=== PATIENT | female | born 1950 | race Caucasian/White ===

== ENCOUNTER 2021-10-01 18:39 | Emergency (ER) | payer BC, MEDICARE ==
[2021-10-01 19:29] VITALS: BP 130/86; PULSE 95
== END 2021-10-01 21:31 | disposition home or self-care (01) ==
LOC: JP.ED 18:39
DX: M77.51 Other enthesopathy of right foot and ankle (principal); J45.909 Unspecified asthma, uncomplicated; I10 Essential (primary) hypertension; Z88.5 Allergy status to narcotic agent; Z79.899 Other long term (current) drug therapy; Z79.82 Long term (current) use of aspirin; Z90.710 Acquired absence of both cervix and uterus
CPT/HCPCS: 36415; 73630-26-RT; 73630-RT; 80048; 85025; 86140; 86618; 99283

== ENCOUNTER 2022-05-01 18:08 | Emergency (ER) | payer MEDICARE ==
[2022-05-01] MEDS ORDERED: Ondansetron 4 MG/2 ML SDV IVPUSH ONE (18:50)
[2022-05-01] MEDS ORDERED: Sodium Chloride 0.9% 1,000 ML IV SCH (19:00)
[2022-05-01] MEDS ORDERED: Iopamidol 755 Mg/ML 100 ML Bottle IV SCH (19:15)
[2022-05-01] MEDS ORDERED: Sodium Chloride 0.9% 100 ML IV SCH (19:15)
[2022-05-01] MEDS ORDERED: LORazepam 2 MG/ML SDV IVPUSH ONE (19:23)
[2022-05-01] MEDS ORDERED: hydrOXYzine HCL 100 MG/2 ML SDV IM ONE (20:17)
[2022-05-01 23:10] VITALS: BP 125/89; PULSE 77
== END 2022-05-01 23:35 | disposition home or self-care (01) ==
LOC: JP.ED 18:08
DX: R11.2 Nausea with vomiting, unspecified (principal); I10 Essential (primary) hypertension; J45.909 Unspecified asthma, uncomplicated; F17.210 Nicotine dependence, cigarettes, uncomplicated; Z88.5 Allergy status to narcotic agent; Z79.82 Long term (current) use of aspirin; Z20.822 Contact with and (suspected) exposure to COVID-19
CPT/HCPCS: 36415; 70450; 70496; 70498; 80048; 84484; 85025; 93005; 96361; 96372; 96374; 96375; 99284; J2060; J2405; J3410; J7030; U0002

== ENCOUNTER 2022-09-06 07:19 | Day surgery (SDC) | payer MEDICARE ==
[~2022-09-06 07:19] MED LIST: fentaNYL 250 MCG/5 ML SDV ONE
[2022-09-06] MEDS ORDERED: Succinylcholine 200 MG/10 ML MDV ONE (07:20)
[2022-09-06] MEDS ORDERED: Propofol 200 MG/20 ML SDV ONE ×2 (07:20→09:42)
[2022-09-06] MEDS ORDERED: Dexamethasone 4 MG/ML SDV ONE (07:20)
[2022-09-06] MEDS ORDERED: Ondansetron 4 MG/2 ML SDV ONE (07:20)
[2022-09-06] MEDS ORDERED: Glycopyrrolate 0.2 MG/ML 5 ML MDV ONE (07:20)
[2022-09-06] MEDS ORDERED: Neostigmine Methylsulfate 1 MG/ML 5 ML Syringe ONE (07:20)
[2022-09-06] MEDS ORDERED: Rocuronium 50 MG/5 ML Vial ONE (07:20)
[2022-09-06] MEDS ORDERED: Scopolamine 1.5 MG Transdermal Patch TOP ONE (07:46)
[2022-09-06] MEDS ORDERED: Albuterol/Ipratropium 3.0-0.5 MG/3 ML Neb Soln NEB ONE (07:48)
[2022-09-06] MEDS ORDERED: Bupivacaine 0.5%/EPINEPHrine 1:200,000 50 ML MDV ONE (07:49)
[2022-09-06] MEDS ORDERED: Lactated Ringers 1,000 ML IV SCH (08:00)
[2022-09-06] MEDS ORDERED: Nozin Nasal Sanitizer NASBOTH ONE (08:00)
[2022-09-06 08:07] LABS: HEMATOCRIT 40.2 % (34.3-46.0); HEMOGLOBIN 13.7 g/dL (11.2-15.5); MEAN CORPUSCULAR HEMOGLOBIN 35.2 pg (31.6-35.5); MEAN CORPUSCULAR HGB CONC 34.1 g/dL (31.6-35.5); MEAN CORPUSCULAR VOLUME 103.3 fL (81.4-99.0); RED BLOOD CELL COUNT 3.89 M/uL (3.77-5.24); WHITE BLOOD CELL COUNT,WBC 7.8 K/uL (3.2-11.0)
[2022-09-06] MEDS ORDERED: ceFAZolin 1 GM in Premix Bag 1 BAG IV ONE (08:15)
[2022-09-06 08:29] LABS: ALANINE AMINOTRANSFERASE,ALT 43 U/L (12-78); ALBUMIN 3.8 g/dL (3.4-5.0); ALKALINE PHOSPHATASE 52 U/L (46-116); ANION GAP 6.4 mmol/L (5.0-14.0); ASPARTATE AMNIOTRANSFERASE,AST 30 U/L (15-37); BILIRUBIN TOTAL 0.5 mg/dL (0.2-1.0); BLOOD UREA NITROGEN,BUN 19 mg/dL (7-18); CALCIUM 9.1 mg/dL (8.5-10.1); CARBON DIOXIDE,CO2 30 mmol/L (21-32); CHLORIDE,CL 105 mmol/L (100-108); CREATININE 0.9 mg/dL (0.6-1.0); EST CRCL DRUG DOSING (CG) 44.52 mL/min; ESTIMATED GFR 69 mL/min (>60); GLUCOSE RANDOM 100 mg/dL (74-106); PROTEIN TOTAL,TP 7.5 g/dL (6.4-8.2); SODIUM,NA 141 mmol/L (140-148)
[2022-09-06] MEDS ORDERED: Midazolam 1 MG/ML 2 ML SDV ONE ×2 (09:17→09:43)
[2022-09-06 13:14] VITALS: PULSE 68
[2022-09-06 13:33] VITALS: BP 123/81
[2022-09-06] MEDS ORDERED: hydrOXYzine HCl 25 MG Tab PO ONE (14:20)
== END 2022-09-06 14:34 | disposition home or self-care (01) ==
LOC: JP.SDS 07:19
PROVIDERS: ATTEND Specialist
DX: M87.852 Other osteonecrosis, left femur (principal); I10 Essential (primary) hypertension; K21.9 Gastro-esophageal reflux disease without esophagitis; E78.5 Hyperlipidemia, unspecified; J45.909 Unspecified asthma, uncomplicated; M19.90 Unspecified osteoarthritis, unspecified site; I87.2 Venous insufficiency (chronic) (peripheral); M81.0 Age-related osteoporosis without current pathological fracture; Z88.5 Allergy status to narcotic agent
CPT/HCPCS: 27299; 36415; 76000; 80053; 85027; 93005; 93010; 94640; A9270; J0131; J0690; J2250; J2704; J3490; J7120; J0330; J1100; J2405; J2710; J3010; J7620

== ENCOUNTER 2022-09-06 19:07 | Emergency (ER) | payer MEDICARE ==
[2022-09-06 19:56] VITALS: PULSE 99
[2022-09-06] MEDS ORDERED: HYDROmorphone 1 MG/ML Syringe IM ONE (20:26)
[2022-09-06 20:47] VITALS: BP 127/76
[2022-09-06] MEDS ORDERED: fentaNYL 25 MCG/HR Transdermal Patch TRDERM SCH (21:00)
== END 2022-09-06 21:53 | disposition home or self-care (01) ==
LOC: JP.ED 19:07
DX: G89.18 Other acute postprocedural pain (principal); M25.552 Pain in left hip; I10 Essential (primary) hypertension; K21.9 Gastro-esophageal reflux disease without esophagitis; J45.909 Unspecified asthma, uncomplicated; M19.90 Unspecified osteoarthritis, unspecified site; F17.210 Nicotine dependence, cigarettes, uncomplicated; Z79.82 Long term (current) use of aspirin; Z79.899 Other long term (current) drug therapy; Z88.5 Allergy status to narcotic agent; Z88.8 Allergy status to other drugs, medicaments and biological substances
CPT/HCPCS: 96372; 99283; A9270; J1170

== ENCOUNTER 2024-03-30 12:43 | Emergency (ER) | payer MEDICARE ==
[2024-03-30 13:04] VITALS: BP 144/96; PULSE 79
[2024-03-30 14:00] LABS: INFLUENZA A NAA NEGATIVE (NEGATIVE); INFLUENZA B NAA NEGATIVE (NEGATIVE); RESPIRATORY SYNCYTIAL VIR NAA NEGATIVE (NEGATIVE)
[2024-03-30 14:04] LABS: CORONAVIRUS COVID-19 NAA POSITIVE (NEGATIVE)
== END 2024-03-30 15:05 | disposition home or self-care (01) ==
LOC: JP.ED 12:43
DX: U07.1 COVID-19 (principal); J44.1 Chronic obstructive pulmonary disease with (acute) exacerbation; I10 Essential (primary) hypertension; K21.9 Gastro-esophageal reflux disease without esophagitis; Z79.82 Long term (current) use of aspirin; Z79.899 Other long term (current) drug therapy; Z88.5 Allergy status to narcotic agent; Z88.6 Allergy status to analgesic agent
CPT/HCPCS: 0241U; 71046; 99285; 99284

== ENCOUNTER 2024-05-26 05:48 | Inpatient (IN) | payer MEDICARE ==
[2024-05-26] MEDS: Scopalamine 1mg/3day Transdermal Patch TOP ONE (06:45)
[2024-05-26] MEDS: Lactated Ringers 1,000 ML IV SCH (07:09)
[2024-05-26] MEDS ORDERED: fentaNYL 100 MCG/2 ML SDV ONE (07:25)
[2024-05-26] MEDS ORDERED: Dexamethasone 4 MG/ML SDV ONE (07:26)
[2024-05-26] MEDS ORDERED: Rocuronium 50 MG/5 ML Vial ONE (07:26)
[2024-05-26] MEDS: Albuterol/Ipratropium 3.0-0.5 MG/3 ML Neb Soln NEB ONE (07:26)
[2024-05-26] MEDS ORDERED: Propofol 200 MG/20 ML SDV ONE (07:26)
[2024-05-26] MEDS ORDERED: Succinylcholine 200 MG/10 ML MDV ONE (07:26)
[2024-05-26] MEDS ORDERED: Ondansetron 4 MG/2 ML SDV ONE (07:26)
[2024-05-26] MEDS ORDERED: Neostigmine Methylsulfate 10 MG/10 ML MDV ONE (07:26)
[2024-05-26] MEDS ORDERED: Glycopyrrolate 0.2 MG/ML 5 ML MDV ONE (07:26)
[2024-05-26] MEDS ORDERED: ceFAZolin 2 GM in Sodium Chloride 0.9% 50 ML IV ONE (07:30)
[2024-05-26] MEDS: ceFAZolin 2 GM in Premix Bag 1 BAG IV ONE (07:35)
[2024-05-26] MEDS ORDERED: diphenhydrAMINE 50 MG/ML SDV ONE (08:01)
[2024-05-26] MEDS ORDERED: Labetalol 20 MG/4 ML Syringe ONE (08:02)
[2024-05-26] MEDS ORDERED: fentaNYL 250 MCG/5 ML SDV ONE (08:14)
[2024-05-26] MEDS ORDERED: hydrALAZINE 20 MG/ML SDV ONE (08:26)
[2024-05-26] MEDS: Bupivacaine 0.25%/EPINEPHrine 1:200,000 30 ML SDV ONE (08:29)
[2024-05-26] MEDS ORDERED: Sugammadex Sodium 200 MG/2 ML VIAL IV ONE (08:34)
[2024-05-26] MEDS ORDERED: Ketorolac 30 MG/ML SDV ONE (08:34)
[2024-05-26] MEDS ORDERED: ePHEDrine 50 MG/ML SDV ONE (08:44)
[2024-05-26] MEDS ORDERED: Lactated Ringers 1,000 ML ONE (08:45)
[2024-05-26] MEDS ORDERED: Albuterol/Ipratropium 3.0-0.5 MG/3 ML Neb Soln INH PRN (09:57)
[2024-05-26] MEDS ORDERED: Albuterol 6.7 GM Inhaler INH PRN (09:57)
[2024-05-26] MEDS: Ondansetron 4 MG/2 ML SDV IVPUSH PRN (11:00)
[2024-05-26] MEDS: HYDROmorphone 0.5 MG/0.5 ML Syringe IVPUSH PRN (11:01)
[2024-05-26] MEDS: Acetaminophen 325 MG Tab PO SCH (14:30)
[2024-05-26] MEDS: Gabapentin 100 MG Cap PO SCH (14:31)
[2024-05-26] MEDS: Promethazine 12.5 MG in Sodium Chloride 0.9% 50 ML IV PRN (15:08)
[2024-05-26] MEDS: Ketorolac 15 MG/ML SDV IVPUSH PRN (15:51)
[2024-05-26] MEDS: Melatonin 3 MG Tab PO SCH (21:21)
[2024-05-26] MEDS: Famotidine 20 MG Tab PO SCH (21:22)
[2024-05-26] MEDS: SYMBICORT INH SCH (21:22)
[2024-05-27] MEDS: Losartan 50 MG Tab PO SCH (08:05)
[2024-05-27] MEDS ORDERED: Non-Formulary Medication 1 Each (Famotidine [Pepcid] 40 MG Tablet) PO SCH (09:00)
[2024-05-27] MEDS: Acetaminophen Soln 650 MG/20.3 ML UD Cup PO SCH (09:23)
[2024-05-27 11:10] VITALS: BP 117/77; PULSE 79
== END 2024-05-27 12:27 | disposition home or self-care (01) | DRG 328 ==
LOC: JP.SDSSCHI 05:48 → JP.MS 09:53
PROVIDERS: ADMIT Surgery; ATTEND Surgery
PROC: 0DV44ZZ Restriction of Esophagogastric Junction, Percutaneous Endoscopic Approach (ICD-10-PCS; 2024-05-26)
PROC: 0BQT4ZZ Repair Diaphragm, Percutaneous Endoscopic Approach (ICD-10-PCS; principal; 2024-05-26 07:30)
DX: K44.9 Diaphragmatic hernia without obstruction or gangrene (principal); K21.9 Gastro-esophageal reflux disease without esophagitis; J45.909 Unspecified asthma, uncomplicated; G43.909 Migraine, unspecified, not intractable, without status migrainosus; I10 Essential (primary) hypertension; Z90.49 Acquired absence of other specified parts of digestive tract; Z98.890 Other specified postprocedural states; Z90.710 Acquired absence of both cervix and uterus; Z79.51 Long term (current) use of inhaled steroids; Z79.82 Long term (current) use of aspirin; Z79.899 Other long term (current) drug therapy
CPT/HCPCS: 00790-QZ; 36415; 86850; 86900; 86901; 94640; A9270-GY; J0131; J0330; J0360; J0690; J1100; J1200; J1596; J1885; J1920; J2405; J2550; J2704; J2710; J3010; J3490; J7120; J7620